=== PATIENT | male | born 1945 | race Caucasian/White ===

== ENCOUNTER → 2018-03-27 | Outpatient (CLI) | payer OTHER ==
[~2018-03-27] MED LIST: GADOBUTROL 10 ML VIAL IVP ONE
== END ==
LOC: FIMAGING 15:31
DX: N42.9 Disorder of prostate, unspecified (principal)
CPT/HCPCS: A9585

== ENCOUNTER → 2018-11-07 | Outpatient (CLI) | payer OTHER | LOC: FIMAGING 11:51 | DX: N42.9 Disorder of prostate, unspecified (principal) | CPT/HCPCS: 72197; 76377; A9585; 82565-PO ==

== ENCOUNTER → 2019-01-18 | Outpatient (CLI) | payer OTHER | LOC: FCPNEURO 20:00 | PROVIDERS: ATTEND Student in an Organized Health Care Education/Training Program | DX: G47.31 Primary central sleep apnea (principal); G47.33 Obstructive sleep apnea (adult) (pediatric) ==

== ENCOUNTER 2019-03-02 14:14 | Emergency (ER) | payer OTHER ==
--- NOTE | 2019-03-02 16:00 | EDPHY ---
H & P Time Seen by Provider: 03/02/19 15:45 HPI/ROS: CHIEF COMPLAINT: Left calf pain HISTORY OF PRESENT ILLNESS: Was running felt a pop, was playing and only made it to 3[employer] base because of pain. Pain in the left calf sudden onset, no knee or foot symptoms. REVIEW OF SYSTEMS: Otherwise negative PAST MEDICAL HISTORY: COPD and hypertension Social history: Former smoker General Appearance: Alert and conversant, cooperative. Normal range of motion of left knee and ankle and foot. Skin intact without redness or lesion. Calf tenderness to palpation proximally and mid calf. Achilles nontender and Leggett test negative for Achilles rupture. Ankle joint stable. Normal motor sensory and dorsalis pedis pulse in the left foot. Emergency Department course/MDM: Likely gastrocnemius or other muscle tear in the calf. X-ray, long leg splint and crutches, Ortho referral. Re-examined at 4:55 p.m., requesting shorter leg splint, will place the Lucien boot and crutches. Normal x-ray discussed. Smoking Status: Former smoker Constitutional: Initial Vital Signs Temperature (C) 36.7 C 03/02/19 14:20 Heart Rate 72 03/02/19 14:20 Respiratory Rate 16 03/02/19 14:20 Blood Pressure 151/88 H 03/02/19 14:20 O2 Sat (%) 93 03/02/19 14:20 O2 Delivery Mode Room Air Allergies/Adverse Reactions: No Known Allergies Allergy (Unverified 08/29/13 07:45) Home Medications: Medication Instructions Recorded Cozaar 08/29/13 Losartan Potassium 03/02/19 MDM/Departure - MDM Imaging Results: Imaging Impressions Tibia/Fibula X-Ray 03/02/19 16:00 Impression: Nothing acute identified. Imaging: I viewed and interpreted images myself - Depart Disposition: Home, Routine, Self-Care Clinical Impression: Strain of calf muscle Condition: Good Instructions: Muscle Strain (ED) Additional Instructions: Wear splint, use crutches with partial weight-bearing, follow-up with Orthopedics early this week. Possible gastrocnemius or other calf muscle tear. Referrals: Chaim Durant MD [Primary Care Provider] - As per Instructions Mariaa Mendez MD [Medical Doctor] - 2-3 days, call for appt.
[2019-03-02 17:29] VITALS: BP 139/78
== END 2019-03-02 17:34 | disposition home or self-care (01) ==
PROC: 2W3MX1Z Immobilization of Left Lower Extremity using Splint (ICD-10-PCS; principal; 2019-03-02)
DX: S86.212A Strain of muscle(s) and tendon(s) of anterior muscle group at lower leg level, left leg, initial encounter (principal); Y93.02 Activity, running
CPT/HCPCS: 29505; 73590; 99283; L4386